=== PATIENT | female | born 1960 ===

== ENCOUNTER 2017-05-26 01:05 | Emergency (ER) | payer BC, MEDICAID ==
--- NOTE | 2017-05-26 04:03 | ED PDOC ---
Arrival/HPI - General Time Seen by Provider: 05/26/17 03:57 Historian: Patient - History of Present Illness Narrative History of Present Illness (Text): 05/26/17 04:00 57 year old female, whose past medical history includes hypertension, who presents to the Emergency department complaining of left flank pain radiating to the abdomen since yesterday, worsening tonight. Patient states pain is worse with movement. She denies any recent trauma, strenuous activity, or dysuria. Patient also denies fevers, chills, dizziness, headache, chest pain, nausea, vomiting, diarrhea, or any other symptoms. Time/Duration: Other (Yesterday) Symptom Onset: Gradual Symptom Course: Unchanged Activities at Onset: Rest, Light Context: Sitting, Home Past Medical History - Provider Review Nursing Documentation Reviewed: Yes Family/Social History - Physician Review Nursing Documentation Reviewed: Yes Family/Social History: Unknown Family HX Allergies/Home Meds Allergies/Adverse Reactions: Allergies No Known Allergies Allergy (Unverified 05/26/17 04:02) Review of Systems - Physician Review All systems were reviewed & negative as marked: Yes - Review of Systems Constitutional: absent: Fevers Eyes: Normal ENT: Normal Respiratory: absent: SOB, Cough Cardiovascular: absent: Chest Pain Gastrointestinal: Abdominal Pain. absent: Diarrhea, Nausea, Vomiting Genitourinary Female: absent: Dysuria Musculoskeletal: Back Pain (+left flank pain) Skin: Normal Neurological: absent: Headache, Dizziness Endocrine: Normal Hemo/Lymphatic: Normal Psychiatric: Normal Physical Exam Vital Signs Reviewed: Yes Vital Signs Temp Pulse Resp BP Pulse Ox 05/26/17 04:10 97.6 F 69 18 123/74 98 Temperature: Afebrile Blood Pressure: Normal Pulse: Regular Respiratory Rate: Normal Appearance: Positive for: Well-Appearing Pain Distress: None Mental Status: Positive for: Alert and Oriented X 3 - Systems Exam Head: Present: Atraumatic, Normocephalic Pupils: Present: PERRL Extroacular Muscles: Present: EOMI Conjunctiva: Present: Normal Mouth: Present: Moist Mucous Membranes Neck: Present: Normal Range of Motion Respiratory/Chest: Present: Clear to Auscultation, Good Air Exchange. No: Respiratory Distress, Accessory Muscle Use Cardiovascular: Present: Regular Rate and Rhythm, Normal S1, S2. No: Murmurs Abdomen: Present: Normal Bowel Sounds. No: Tenderness, Distention, Peritoneal Signs Back: Present: Normal Inspection Upper Extremity: Present: Normal Inspection. No: Cyanosis, Edema Lower Extremity: Present: Normal Inspection. No: Edema Neurological: Present: GCS=15, CN II-XII Intact, Speech Normal Skin: Present: Warm, Dry, Normal Color. No: Rashes Psychiatric: Present: Alert, Oriented x 3, Normal Insight, Normal Concentration Medical Decision Making ED Course and Treatment: 05/26/17 04:16 Impression: 57 year old female with left flank pain radiating to her abdomen. Differential Diagnosis included but are not limited to: renal colic vs. musculoskeletal pain Plan: -- CT Abdomen/Pelvis -- Labs -- Urinalysis -- IV fluids -- Toradol Progress Notes: 05/26/17 06:14 Reviewed radiology, CT Abdomen and Pelvis shows: Lower thorax: The bilateral lung bases are clear. ABDOMEN: Liver: No acute findings Gallbladder and bile ducts: No acute finding. No calcified stones. No intra- extrahepatic biliary ductal dilation. Pancreas: Limited evaluation secondary to the lack of intravenous contrast. Spleen: No acute findings. Adrenals: No acute findings. Kidneys and ureters: No obstructing stones. No hydronephrosis. PELVIS: Bladder: No acute findings. Reproductive: No acute findings. Appendix: The appendix is not definitively visualized, however no pericecal inflammatory change is identified to suggest the presence of acute appendicitis. ABDOMEN and PELVIS: Stomach and bowel: No acute findings. Peritoneum: No acute findings. Lymph nodes: Limited evaluation without intravenous contrast. Vasculature: No aortic aneurysm. Bones: No acute fracture. IMPRESSION: No obstructive uropathy. 05/26/17 06:50 On reevaluation the patient feels better and is in no acute distress. I have discussed the results and plan with the patient, who expresses understanding. Patient given the opportunity to ask question, all questions were answered and there is agreement with the plan to discharge the patient home. Patient is stable for discharge. Patient was instructed to follow up with physician/clinic in 1-2 days or return if symptoms persist/worsen or new concerning symptoms arise. - Lab Interpretations Lab Results: 05/26/17 04:20 05/26/17 04:20 Lab Results 05/26/17 05:05: Urine Color Light yellow, Urine Appearance Sl cloudy, Urine pH 6.0, Ur Specific Clay 1.020, Urine Protein Negative, Urine Glucose (UA) Negative, Urine Ketones Negative, Urine Blood Negative, Urine Nitrate Negative, Urine Bilirubin Negative, Urine Urobilinogen 0.2, Ur Leukocyte Esterase Moderate H, Urine RBC 0 - 2, Urine WBC 5 - 10, Ur Epithelial Cells 4 - 5, Urine Bacteria Mod 05/26/17 04:20: WBC 7.7, RBC 4.74, Hgb 14.4, Hct 42.4, MCV 89.5, MCH 30.4, MCHC 34.0, RDW 13.7, Plt Count 338, MPV 10.0 05/26/17 04:20: Sodium 141, Potassium 3.5 L, Chloride 97 L, Carbon Dioxide 35 H , Anion Gap 13, BUN 25 H, Creatinine 0.7, Est GFR ( Amer) > 60, Est GFR ( Non-Af Amer) > 60, Random Glucose 89, Calcium 9.4, Total Bilirubin 0.3, AST 29, ALT 37, Alkaline Phosphatase 96, Total Protein 8.3, Albumin 4.2, Globulin 4.1, Albumin/Globulin Ratio 1.0 L I have reviewed the lab results: Yes - RAD Interpretation Radiology Orders: 05/26/17 04:03 ABD & PELVIS W/O PO OR IV CONT [CT] Stat Machine Stripper: Radiologist - Medication Orders Current Medication Orders: Sodium Chloride (Sodium Chloride 0.9%) 1,000 mls @ 100 mls/hr IV .Q10H [facility] Last Admin: 05/26/17 06:21 Dose: 100 mls/hr Discontinued Medications Ketorolac Tromethamine (Toradol) 30 mg IVP ONCE ONE Stop: 05/26/17 04:04 Last Admin: 05/26/17 04:35 Dose: 30 mg - Scribe Statement Aure Juarez under the supervision of Amna Flores Disposition/Present on Arrival - Present on Arrival Any Indicators Present on Arrival: No - Disposition Have Diagnosis and Disposition been Completed?: Yes Diagnosis: Back pain, Muscle strain Disposition: HOME/ ROUTINE Disposition Time: 06:51 Patient Plan: Discharge Patient Problems: Current Active Problems Problem Status Onset Back pain Acute Muscle strain Acute Condition: GOOD Discharge Instructions (ExitCare): Muscle Strain (ED), Back Pain (ED) Additional Instructions: Rest/no strenuous physical activity/medication as prescribed/follow up with your doctor this week/any recurrent worsening symptoms return to the emergency room Prescriptions: Naproxen [Naprosyn Tab] 375 mg PO BID PRN #14 tab PRN Reason: Pain, Moderate (4-7)
[2017-05-26 04:11] VITALS: BP 123/74; PULSE 69; RESP 18; TEMP 97.6; O2SAT 98
[2017-05-26] MEDS ORDERED: Sodium Chloride 0.9% 1,000 ML IV SCH (04:15)
[2017-05-26 04:51] LABS: HEMOGLOBIN 14.4 gm/dL (12.0-16.0); MEAN CELL VOLUME 89.5 fL (80.0-105.0); MEAN CORPUSCULAR HEMOGLOBIN 30.4 pg (25.0-35.0); RBC 4.74 10^6/uL (3.5-6.1); RED CELL DISTRIBUTION WIDTH 13.7 % (11.5-14.5); WHITE BLOOD COUNT 7.7 10^3/ul (4.5-11.0)
[2017-05-26 05:28] LABS: ALBUMIN 4.2 g/dL (3.0-4.8); ALT/SGPT 37 U/L (7-56); AST/SGOT 29 U/L (15-39); BLOOD UREA NITROGEN 25 mg/dL (7-21); CALCIUM 9.4 mg/dL (8.4-10.5); GFR AFRICAN-AMERICAN > 60; GFR NON-AFRICAN AMERICAN > 60
[2017-05-26 05:56] LABS: URINE BILIRUBIN NEGATIVE (NEGATIVE); URINE BLOOD NEGATIVE (NEGATIVE); URINE GLUCOSE (UA) NEGATIVE (NEGATIVE); URINE LEUKOCYTE ESTERASE MODERATE Leu/uL (NEGATIVE); URINE NITRATE NEGATIVE (NEGATIVE); URINE PROTEIN NEGATIVE mg/dL (<30 mg/dL); URINE UROBILINOGEN 0.2 E.U./dL (<1 E.U./dL)
[2017-05-26 06:18] LABS: URINE APPEARANCE SL CLOUDY (CLEAR); URINE COLOR LIGHT YELLOW (YELLOW)
[2017-05-26 06:20] LABS: URINE RBC 0 - 2 /hpf (0-2)
[2017-05-26 06:21] LABS: URINE BACTERIA MOD (NEG)
--- NOTE | 2017-05-26 17:15 | CT ---
PROCEDURE: CT abdomen and pelvis dated 05/26/2017 HISTORY: left flank pain COMPARISON: None. TECHNIQUE: Contiguous axial images of the abdomen and pelvis performed in standard fashion without oral or intravenous contrast material. Additional 2 dimensional sagittal and coronal reformats generated. Radiation dose: Total exam DLP = 1139.59 mGy-cm. This CT exam was performed using one or more of the following dose reduction techniques: Automated exposure control, adjustment of the mA and/or kV according to patient size, and/or use of iterative reconstruction technique. FINDINGS: LOWER THORAX: Unremarkable. LIVER: Liver is mildly enlarged measuring nearly 19 cm in CC dimension. No obvious hepatic mass or collection. GALLBLADDER AND BILE DUCTS: The gallbladder is physiologically distended. No evidence of intraluminal gallbladder calculi. PANCREAS: Visualized portions of the pancreas unremarkable. SPLEEN: Spleen exhibits normal size and attenuation. Few scattered peripheral calcifications possibly along the cortical surface. Rule out prior exposure to granulomatous disease process. ADRENALS: No adrenal lesions. KIDNEYS AND URETERS: Kidneys demonstrate relatively symmetric size. No evidence of nephrolithiasis or hydronephrosis. There no obvious renal masses or collections. BLADDER: The urinary bladder is incompletely distended which may account for slight thick-walled appearance. Rule out cystitis. REPRODUCTIVE: Uterus is bulky and somewhat heterogeneous in appearance. Questionable anterior uterine fibroid. Follow-up pelvic ultrasound could be performed further evaluation if necessary. APPENDIX: Note made of radiopaque densities in these regions cecum on likely due to prior appendectomy however clinical correlation with surgical history recommended. No inflammatory changes seen in the right lower quadrant of the abdomen BOWEL: Evaluation of the bowel is limited due to the lack of oral contrast material. . There are no radiopaque densities also seen along greater curvature of the stomach up possibly due to prior gastric sleeve cyst surgery however clinical correlation with surgical history is recommended as well. Visualized loops of small bowel exhibit normal contour and caliber. No evidence of acute mechanical small bowel obstruction. The mid appears to be some fecalized content within the small bowel possibly due to stasis. Moderately large amount of stool is seen within the cecum as well as at ascending and to a lesser degree transverse colon consistent with fecal retention/constipation. PERITONEUM: Unremarkable. No fluid collection. No free air. Small to medium sized fat containing umbilical hernia. LYMPH NODES: No significant-bulky adenopathy lymph nodes. VASCULATURE: No evidence of aortic or iliac artery aneurysm. BONES: Minor multilevel degenerative spondylosis of the visualized lower thoracic and lumbar spine. No acute compression fractures. . There is mild levoscoliosis centered at the L3-L4 level. OTHER FINDINGS: None. IMPRESSION: Mild hepatomegaly. Postoperative changes of the stomach likely representing gastric sleeve surgery. There also appears to be postoperative changes along the cecum likely due to appendectomy. Clinical correlation with surgical history. Findings consistent with constipation. Scattered calcifications along the peripheral margins of the spleen nonspecific though likely representing sequela of prior exposure to a granulomatous disease process. No evidence of nephrolithiasis or hydronephrosis. See above discussion for additional findings and details. Note that this report was placed in PA review folder followup.
== END 2017-05-26 07:13 | disposition home or self-care (01) ==
LOC: ED 01:05
DX: S39.012A Strain of muscle, fascia and tendon of lower back, initial encounter (principal); X58.XXXA Exposure to other specified factors, initial encounter; Y93.9 Activity, unspecified; Y92.9 Unspecified place or not applicable; M54.9 Dorsalgia, unspecified
CPT/HCPCS: 74176; 80053; 81001; 85027; 87086; 96374; 99282; J1885; J7040